=== PATIENT | male | born 1945 | race Asian ===

== ENCOUNTER 2018-05-17 04:16 | Inpatient (IN) | payer OTHER, MEDICARE ==
[2018-05-17] VITALS (7 sets, daily range): BP systolic 97–152
[~2018-05-17] VITALS: Ht 167.6 cm; Wt 72.7 kg
[2018-05-17] MEDS ORDERED: LIP40 PO (04:40)
[2018-05-17] MEDS ORDERED: CLOP300T2 PO (04:40)
[2018-05-17] MEDS ORDERED: OMEG1CAP PO (04:40)
[2018-05-17] MEDS ORDERED: NITSL SL (04:40)
[2018-05-17] MEDS ORDERED: ASA81 PO (04:40)
[2018-05-17] MEDS ORDERED: TIOT4MIS5 IH (04:40)
[2018-05-17] MEDS ORDERED: LISI40TA4 PO (04:40)
[2018-05-17] MEDS ORDERED: CALC-823 PO (04:40)
[2018-05-17] MEDS ORDERED: CARV12.548 PO (04:40)
[2018-05-17] MEDS ORDERED: CHOL100038 PO (04:40)
[2018-05-17] MEDS ORDERED: FERR140T PO (04:40)
[2018-05-17 04:42] LABS: HEMATOCRIT 39.7 % (36-54); HEMOGLOBIN 12.8 g/dL (14.0-18.0); MEAN CORPUSCULAR HEMOGLOBIN 30 pg (27-31); MEAN CORPUSCULAR HGB CONC 32 % (32-36); MEAN CORPUSCULAR VOLUME 93 fL (79.0-98.0); PLATELET COUNT (AUTO) 288 K/uL (130-430); RED BLOOD CELL COUNT(AUTO) 4.25 MIL/uL (4.2-6.2); RED CELL DISTRIBUTION WIDTH 14.1 % (9.0-15.0)
[2018-05-17] MEDS ORDERED: IPRATROPIUM/ALBUTEROL SULFATE 3 ML AMPUL.NEB (DUONEB) INH ONE (04:45)
[2018-05-17 04:52] LABS: CALCIUM 9.3 mg/dL (8.4-11.0); POTASSIUM 3.2 mmol/L (3.5-5.1)
[2018-05-17 04:56] LABS: PROTHROMBIN TIME 10.6 SECS (9.5-12.5)
[2018-05-17 04:57] LABS: ALBUMIN 3.3 g/dL (3.4-4.8); TOTAL BILIRUBIN 0.9 mg/dL (0.0-1.0)
[2018-05-17] MEDS ORDERED: ASPIRIN 81 MG TAB.CHEW PO ONE (05:15)
[2018-05-17 05:24] LABS: ATYPICAL LYMPHOCYTES % 0 % (0-0); BAND % (MANUAL) 7 % (0-6); BASOPHILS % (MANUAL) 0 % (0-2); EOSINOPHILS % (MANUAL) 3 % (0-7); LYMPHOCYTES % (MANUAL) 20 % (20-46); MONOCYTES % (MANUAL) 8 % (0-11)
[2018-05-17] MEDS ORDERED: IOHEXOL 100 ML IV ONE (05:41)
[2018-05-17] MEDS ORDERED: PIPERACILLIN/TAZO 3.375 GM in NS 50 ML IV ONE (06:30)
[2018-05-17] MEDS ORDERED: FUROSEMIDE 20 MG/2 ML VIAL IVP ONE (06:30)
[2018-05-17] MEDS ORDERED: VANCOMYCIN HCL 1,000 MG in NS 250 ML IV ONE (06:30)
[2018-05-17] MEDS ORDERED: PIPERACILLIN/TAZOBACTAM 3.375 GM/VIAL (ZOSYN) IV ONE (06:53)
[2018-05-17] MEDS ORDERED: VANCOMYCIN HCL 1000 MG/VIAL IV ONE (06:54)
[2018-05-17] MEDS ORDERED: ACETAMINOPHEN 325 MG TABLET PO PRN (07:45)
[2018-05-17] MEDS: IPRATROPIUM/ALBUTEROL SULFATE 3 ML AMPUL.NEB (DUONEB) INH SCH ×3 (07:45→19:56)
[2018-05-17] MEDS ORDERED: NITROGLYCERIN 0.4 MG TAB.SUBL SL SCH (07:45)
[2018-05-17] MEDS ORDERED: POTASSIUM CHLORIDE 10 MEQ TAB.PRT.SR PO ONE (07:45)
[2018-05-17] MEDS ORDERED: ATORVASTATIN 20 MG TABLET PO SCH (09:00)
[2018-05-17] MEDS: ASPIRIN 81 MG TAB.CHEW PO SCH (09:00)
[2018-05-17] MEDS: CLOPIDOGREL BISULFATE 75 MG TABLET PO SCH (09:45)
[2018-05-17] MEDS: LISINOPRIL 20 MG TABLET PO SCH (09:45)
[2018-05-17] MEDS: FAMOTIDINE 20 MG TABLET PO SCH (09:46)
[2018-05-17] MEDS: CARVEDILOL 12.5 MG TABLET (COREG) PO SCH ×2 (09:46→20:53)
[2018-05-17] MEDS ORDERED: POTASSIUM CHLORIDE 20 MEQ TAB.PRT.SR PO ONE (10:00)
[2018-05-17] MEDS ORDERED: FUROSEMIDE 40 MG/4 ML VIAL IVP ONE (10:00)
[2018-05-17] MEDS ORDERED: POTASSIUM CHLORIDE 20 MEQ/PKT PACKET PO ONE (10:15)
[2018-05-17 13:36] LABS: BILIRUBIN,URINE NEGATIVE (NEGATIVE); BLOOD, URINE NEGATIVE (NEGATIVE); CLARITY/URINE CLEAR (CLEAR); COLOR,URINE YELLOW (YELLOW); GLUCOSE,URINE NEGATIVE (NEGATIVE); KETONES,URINE NEGATIVE (NEGATIVE); LEUKOCYTE ESTERASE ,URINE NEGATIVE (NEGATIVE); NITRITE, URINE NEGATIVE (NEGATIVE); PH,URINE 7.5 (5.0-8.0); PROTEIN URINE NEGATIVE (NEGATIVE); UROBILINOGEN,URINE 0.2 (0.2-1.0)
[2018-05-17] MEDS: chlordiazePOXIDE HCL 25 MG CAPSULE PO SCH (20:53)
[2018-05-17] MEDS ORDERED: FUROSEMIDE 40 MG/4 ML VIAL IVP SCH (21:00)
[2018-05-18] MEDS: IPRATROPIUM/ALBUTEROL SULFATE 3 ML AMPUL.NEB (DUONEB) INH SCH ×3 (01:19→21:21)
[2018-05-18 07:00] LABS: ALBUMIN 3.3 g/dL (3.4-4.8); CALCIUM 8.8 mg/dL (8.4-11.0); CREATININE 1.08 mg/dL (0.55-1.30); POTASSIUM 3.2 mmol/L (3.5-5.1); THYROID STIMULATING HORMONE 1.1 uIu/mL (0.34-4.82); TOTAL BILIRUBIN 1.2 mg/dL (0.0-1.0)
[2018-05-18 07:16] LABS: EOSINOPHILS # (AUTO) 0.3 K/uL (0.0-0.4); LYMPHOCYTES # (AUTO) 1.4 K/uL (1.0-5.5); PLATELET COUNT (AUTO) 282 K/uL (130-430); RED CELL DISTRIBUTION WIDTH 14.2 % (9.0-15.0)
[2018-05-18 07:23] LABS: HEMOGLOBIN 12.6 g/dL (14.0-18.0); WHITE BLOOD COUNT (AUTO) 6.8 K/uL (4.8-10.8)
[2018-05-18 07:24] LABS: BASOPHILS # (AUTO) 0.3 K/uL (0.0-0.2); BASOPHILS % (AUTO) 0.3 % (0.0-2.0); EOSINOPHILS % (AUTO) 3.9 % (0.0-4.0); HEMATOCRIT 38.3 % (36-54); LYMPHOCYTES % (AUTO) 20.8 % (20.5-51.5); MEAN CORPUSCULAR HEMOGLOBIN 33 pg (27-31); MEAN CORPUSCULAR HGB CONC 14 % (32-36); MEAN CORPUSCULAR VOLUME 939 fL (79.0-98.0); MONOCYTES # (AUTO) 0.6 K/uL (0.0-1.0); MONOCYTES % (AUTO) 8.4 % (1.7-9.3); NEUTROPHILS # (AUTO) 4.5 K/uL (1.8-7.7); NEUTROPHILS % (AUTO) 66.6 % (40.0-70.0)
[2018-05-18] MEDS ORDERED: POTASSIUM CHLORIDE 20 MEQ TAB.PRT.SR PO ONE (07:45)
[2018-05-18 08:02] VITALS: BP_SYST 96
[2018-05-18] MEDS: FOLIC ACID 1 MG TABLET PO SCH (08:59)
[2018-05-18] MEDS: POTASSIUM CHLORIDE 20 MEQ/PKT PACKET PO SCH (08:59)
[2018-05-18] MEDS: THIAMINE HCL 100 MG TABLET PO SCH (08:59)
[2018-05-18] MEDS: ASPIRIN 81 MG TAB.CHEW PO SCH (08:59)
[2018-05-18] MEDS: ATORVASTATIN 20 MG TABLET PO SCH (08:59)
[2018-05-18] MEDS: FAMOTIDINE 20 MG TABLET PO SCH (08:59)
[2018-05-18] MEDS: CLOPIDOGREL BISULFATE 75 MG TABLET PO SCH (09:00)
[2018-05-18] MEDS ORDERED: FUROSEMIDE 40 MG/4 ML VIAL IVP SCH (09:00)
[2018-05-18] MEDS: LISINOPRIL 20 MG TABLET PO SCH (09:45)
[2018-05-18] MEDS: SPIRONOLACTONE 25 MG TABLET (ALDACTONE) PO SCH (09:45)
[2018-05-18] MEDS: FUROSEMIDE 40 MG TABLET PO SCH (09:46)
[2018-05-18] MEDS: CARVEDILOL 12.5 MG TABLET (COREG) PO SCH ×2 (09:46→21:17)
[2018-05-18 12:19] VITALS: BP_SYST 103
[2018-05-18 16:04] VITALS: BP_SYST 106
[2018-05-18] MEDS ORDERED: cefTRIAXone 1 GM in D5W 50 ML IV SCH (17:00)
[2018-05-18 19:00] VITALS: BP_SYST 113
[2018-05-18 20:00] VITALS: BP_SYST 113
[2018-05-18] MEDS: chlordiazePOXIDE HCL 25 MG CAPSULE PO SCH (21:17)
[2018-05-19] MEDS: IPRATROPIUM/ALBUTEROL SULFATE 3 ML AMPUL.NEB (DUONEB) INH SCH (01:20)
[2018-05-19 01:49] VITALS: BP_SYST 103
[2018-05-19 08:00] VITALS: BP_SYST 116
[2018-05-19 08:25] LABS: BASOPHILS % (AUTO) 0.4 % (0.0-2.0); EOSINOPHILS # (AUTO) 0.3 K/uL (0.0-0.4); EOSINOPHILS % (AUTO) 4.2 % (0.0-4.0); HEMATOCRIT 39.7 % (36-54); HEMOGLOBIN 12.3 g/dL (14.0-18.0); LYMPHOCYTES # (AUTO) 1.4 K/uL (1.0-5.5); LYMPHOCYTES % (AUTO) 20.8 % (20.5-51.5); MEAN CORPUSCULAR HEMOGLOBIN 29 pg (27-31); MEAN CORPUSCULAR HGB CONC 31 % (32-36); MEAN CORPUSCULAR VOLUME 94 fL (79.0-98.0); MONOCYTES # (AUTO) 0.6 K/uL (0.0-1.0); MONOCYTES % (AUTO) 9.4 % (1.7-9.3); NEUTROPHILS # (AUTO) 4.2 K/uL (1.8-7.7); NEUTROPHILS % (AUTO) 65.2 % (40.0-70.0); PLATELET COUNT (AUTO) 292 K/uL (130-430); RED BLOOD CELL COUNT(AUTO) 4.22 MIL/uL (4.2-6.2); RED CELL DISTRIBUTION WIDTH 13.9 % (9.0-15.0); WHITE BLOOD COUNT (AUTO) 6.5 K/uL (4.8-10.8)
[2018-05-19] MEDS: FAMOTIDINE 20 MG TABLET PO SCH (08:37)
[2018-05-19] MEDS: FUROSEMIDE 40 MG TABLET PO SCH (08:37)
[2018-05-19] MEDS: FOLIC ACID 1 MG TABLET PO SCH (08:37)
[2018-05-19] MEDS: ATORVASTATIN 20 MG TABLET PO SCH (08:37)
[2018-05-19] MEDS: LISINOPRIL 20 MG TABLET PO SCH (08:38)
[2018-05-19] MEDS: ASPIRIN 81 MG TAB.CHEW PO SCH (08:38)
[2018-05-19] MEDS: SPIRONOLACTONE 25 MG TABLET (ALDACTONE) PO SCH (08:38)
[2018-05-19] MEDS: CLOPIDOGREL BISULFATE 75 MG TABLET PO SCH (08:39)
[2018-05-19] MEDS: THIAMINE HCL 100 MG TABLET PO SCH (08:39)
[2018-05-19] MEDS: CARVEDILOL 12.5 MG TABLET (COREG) PO SCH (08:39)
[2018-05-19] MEDS: POTASSIUM CHLORIDE 20 MEQ/PKT PACKET PO SCH (08:39)
[2018-05-19 08:55] LABS: CALCIUM 8.8 mg/dL (8.4-11.0); CREATININE 1.07 mg/dL (0.55-1.30); POTASSIUM 3.7 mmol/L (3.5-5.1)
[2018-05-19 09:01] LABS: ALBUMIN 3.2 g/dL (3.4-4.8); TOTAL BILIRUBIN 0.9 mg/dL (0.0-1.0)
[2018-05-19 12:59] VITALS: BP_SYST 99
[2018-05-19 13:05] VITALS: BP_SYST 99
[2018-05-19] MEDS ORDERED: FURO-149 PO (13:08)
[2018-05-19] MEDS ORDERED: ALBMDI INH (13:11)
[2018-05-19] MEDS ORDERED: AZIT500T2 PO (13:13)
[2018-05-19] MEDS ORDERED: FAMO20TA8 PO (13:14)
[2018-05-19] MEDS ORDERED: FOLI-43 PO (13:15)
[2018-05-19] MEDS ORDERED: THIA100T13 PO (13:15)
== END 2018-05-19 15:00 | disposition home or self-care (01) | DRG 280 ==
LOC: SED 04:16 → STU 07:00
PROVIDERS: ADMIT Internal Medicine; ATTEND Internal Medicine
DX: I21.A1 Myocardial infarction type 2 (principal); J18.9 Pneumonia, unspecified organism; I50.43 Acute on chronic combined systolic (congestive) and diastolic (congestive) heart failure; J96.01 Acute respiratory failure with hypoxia; K50.90 Crohn's disease, unspecified, without complications; I25.10 Atherosclerotic heart disease of native coronary artery without angina pectoris; E78.5 Hyperlipidemia, unspecified; I11.0 Hypertensive heart disease with heart failure; E87.6 Hypokalemia; Z66 Do not resuscitate; Z51.5 Encounter for palliative care; I25.5 Ischemic cardiomyopathy; R73.9 Hyperglycemia, unspecified; I73.9 Peripheral vascular disease, unspecified; J44.9 Chronic obstructive pulmonary disease, unspecified; Z87.891 Personal history of nicotine dependence; Z95.5 Presence of coronary angioplasty implant and graft; Z82.49 Family history of ischemic heart disease and other diseases of the circulatory system; I25.2 Old myocardial infarction; Z79.82 Long term (current) use of aspirin; Z79.899 Other long term (current) drug therapy; Z79.02 Long term (current) use of antithrombotics/antiplatelets
CPT/HCPCS: 36415; 36600; 71045; 71260-TC; 80053; 80061; 81003; 82803-TC; 83605; 83735-TC; 83880; 84443-TC; 84484; 85007; 85025; 85027; 85379; 85610-TC; 85730-TC; 87040-TC; 93005; 93306; 94640; 94760; 96365; 96366; 96367; 96375; 99285; G0378; J0696; J1940; J2543; J3370; J7060; J7620; Q9967